=== PATIENT | female | born 1965 | race Caucasian/White ===

== ENCOUNTER → 2018-04-27 | Outpatient (CLI) | payer OTHER ==
[~2018-04-27] MED LIST: ESOM40CA42 PO; HYDR-4309 PO; LEV25 PO; LEVO75TA76 PO; LORA-630 PO; LORA0.5T11 GT; LORATADINE PO; NEXIUM PO
--- NOTE | 2018-04-27 15:56 | RADIOLOGY IMAGING REPORT ---
FACILITY: [facility] PATIENT NAME: EVELIA MURPHY : [id number] MR: [id number] V: [id number] EXAM DATE: [id number] ORDERING PHYSICIAN: EFE OCHOA TECHNOLOGIST: Natalie Bean PROCEDURE:BILATERAL DIGITAL SCREENING MAMMOGRAM WITH CAD ASSISTED INTERPRETATION & 3D TOMOSYNTHESIS COMPARISON:Prior mammograms 03/15/17, 03/13/16, 03/14/15, 03/12/15, 03/02/14. INDICATIONS:screening FINDINGS: Extremely heterogeneous fibroglandular tissue is seen throughout the breasts. The parenchymal pattern has remained stable allowing for difference in mammographic technique & patient positioning. Biopsy clips in the Right subareolar region and 3 o'clock position Right breast are again seen. There is no demonstration of malignant appearing mass, malignant appearing calcifications or other secondary sign of malignancy in either breast. DIAGNOSTIC CATEGORY 2--BENIGN FINDING. RECOMMENDATIONS: ROUTINE MAMMOGRAM AND CLINICAL EVALUATION. IMPRESSION: BIRADS 2: Benign finding. No significant abnormality is seen. Dictated by: Shira Mirza M.D. on 04/27/2018 at 15:00 Transcribed by: RED on 04/27/2018 at 15:13 Approved by: Shira Mirza M.D. on 04/27/2018 at 15:55 [facility]
== END ==
LOC: MAMO 01:21
PROVIDERS: ATTEND Family Medicine
DX: Z12.31 Encounter for screening mammogram for malignant neoplasm of breast (principal)
CPT/HCPCS: 77063; 77067

== ENCOUNTER → 2019-07-07 | Outpatient (CLI) | payer OTHER ==
[~2019-07-07] MED LIST changes: -HYDR-4309 PO; +HYDR-653 PO
--- NOTE | 2019-07-10 10:06 | RADIOLOGY IMAGING REPORT ---
FACILITY: [facility] PATIENT NAME: EVELIA MURPHY : [id number] MR: [id number] V: [id number] EXAM DATE: [id number] ORDERING PHYSICIAN: EFE OCHOA TECHNOLOGIST: Natalie Bean PROCEDURE: BILATERAL DIGITAL SCREENING MAMMOGRAM WITH CAD ASSISTED INTERPRETATION & 3D TOMOSYNTHESIS REASON FOR STUDY: Screening. FAMILY HISTORY OF BREAST CANCER: Mother at age 60. BREAST PROCEDURES/TREATMENTS: Benign surgical biopsy of the Right breast and benign Ultrasound guided biopsy of the Right breast. COMPARISON: 04/27/18, 03/15/17, 03/13/16, 03/14/15, 03/12/15. VIEWS OBTAINED: Bilateral 2D & 3D full field CC & MLO projections & bilateral 2D full field XCC projections. BREAST DENSITY: The breasts are heterogeneously dense which can obscure small masses. MAMMOGRAM FINDINGS: There is a biopsy clip in the approximate 3 o'clock position of the Right breast and in the subareolar region of the Right breast. The parenchymal pattern has remained stable allowing for difference in mammographic technique & patient positioning. There are numerous round calcifications scattered about the Right breast that appear relatively unchanged. IMPRESSION: BIRADS 2: Benign finding. DIAGNOSTIC CATEGORY 2--BENIGN FINDING. RECOMMENDATIONS: ROUTINE MAMMOGRAM AND CLINICAL EVALUATION. Dictated by: Shira Mirza M.D. on 07/07/2019 at 14:01 Transcribed by: RED on 07/07/2019 at 15:29 Approved by: Shira Mirza M.D. on 07/10/2019 at 10:01 [facility]
== END ==
LOC: MAMO 04:04
PROVIDERS: ATTEND Family Medicine
DX: Z12.31 Encounter for screening mammogram for malignant neoplasm of breast (principal); R92.1 Mammographic calcification found on diagnostic imaging of breast
CPT/HCPCS: 77063; 77067